=== PATIENT | male | born 2000 | race African-American/Black ===

== ENCOUNTER 2021-11-21 19:08 | Emergency (ER) | payer SELFPAY ==
[2021-11-21 19:11] VITALS: BP 161/93; PULSE 99; RESP 14; TEMP 36.8; O2SAT 100; BMI 28.4
[2021-11-21 19:16] VITALS: O2SAT 98
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
[2021-11-21 20:00] LABS: Absolute Lymphocyte Count 2.49 X10^3/uL (0.83-4.51); Absolute Neutrophil Count 6.2 X10^3/uL (2.0-7.7); Basophil# 0.02 X10^3/uL; Basophil% 0.2 % (0-1); Eosinophil# 0.41 X10^3/uL; Eosinophils% 4.2 % (0-5); Hematocrit 40.1 % (40-54); Hemoglobin 13.4 g/dL (13.0-16.5); Lymphocyte # 2.49 X10^3/ul (0.83-4.51); Lymphocyte % 25.3 % (19-41); Mean Corp Hgb Conc 33.4 g/dL (32-36); Mean Corpuscular Volume 89.7 fL (80-94); Mean Platelet Vol. 9.4 fl (6.2-12.0); Monocyte# 0.67 X10^3/uL; Monocyte% 6.8 % (0-10); NRBC Flagged by Analyzer 0 % (0-5); Neutrophil # 6.23 X10^3/uL (2.7-7.7); Neutrophil % 63.3 % (47-70); Platelet Count 230 K/mm3 (150-450); RBC Distribution Width CV 12.7 % (11.6-14.6); RBC Distribution Width SD 42.2 fl (35.1-43.9); Red Blood Count 4.47 M/mm3 (4.6-6.2); White Blood Count 9.8 K/mm3 (4.4-11.0)
[2021-11-21 20:20] LABS: Alcohol, Blood (Medical)-Serum < 3.0 mg/dL
[2021-11-21] MEDS: Ondansetron 4 MG/2 ML Vial IV (20:20)
[2021-11-21 20:21] LABS: ALB/GLOB Ratio 1.1 RATIO (0.9-2.4); AST(SGOT) 25 U/L (15-37); Alanine Aminotransfer ALT/SGPT 52 U/L (16-61); Albumin, Serum 3.8 g/dL (3.2-5.0); Alkaline Phosphatase 68 U/L (45-117); Anion Gap 5 (5-15); BUN 14 mg/dL (7-18); BUN/Creat Ratio 16.4 RATIO (10-20); Calcium,Total 8.9 mg/dL (8.5-10.1); Chloride 106 mmol/L (98-107); Creatinine, Serum 0.86 mg/dL (0.70-1.30); EST Glomerular Filtration Rate 120 mL/min (>60); Est Glom Filt Rate - Afr Amer 146 mL/min (>60); Globulin 3.4 g/dL (2.2-4.2); Glucose 98 mg/dL (74-106); Potassium 3.8 mmol/L (3.5-5.1); Protein, Total 7.2 g/dL (6.4-8.2); Sodium Level 139 mmol/L (136-145)
[2021-11-21 21:07] LABS: Bacteria 0 SEEN /hpf (None Seen); Mucous, Urine 0 SEEN /hpf (<or=2+); Red Blood Cells-Urine 0 SEEN /hpf (0-5); White Blood Cells 0 SEEN /hpf (0-5)
[2021-11-21 21:17] LABS: Color, Urine Yellow (Yellow); Glucose, Dipstick Normal (Normal); Ketone-Dipstick Negative (Negative); Leukocyte Esterase-Dipstick Negative /ul (Negative); Nitrite-Dipstick Negative (Negative); Occult Blood-Urine Negative /ul (Negative); Protein-Dipstick Negative (Negative); Urine Bilirubin Dipstick Negative (Negative); Urine Clarity Sl. Cloudy (Clear); Urine Urobilinogen Normal (Normal)
[2021-11-21 21:26] LABS: Amphetamine Urine VISTA NEGATIVE (<1000 ng/mL); Barbiturate Urine VISTA NEGATIVE (< 200 ng/mL); Benzodiazepine Urine VISTA NEGATIVE (< 200 ng/mL); Cocaine Urine VISTA NEGATIVE (< 300 ng/mL); Ecstacy Urine VISTA POSITIVE (< 500 ng/mL); Methadone Urine VISTA NEGATIVE (< 300 ng/mL); PCP Urine VISTA NEGATIVE (< 25 ng/mL); THC Urine VISTA POSITIVE (< 50 ng/mL); Vista UDS pH Range 7
[2021-11-21 21:32] LABS: Squamous Epithelial Cells - UA 0-5 SEEN /hpf (0-5)
[2021-11-21 22:19] VITALS: BP 149/91
== END 2021-11-21 22:19 | disposition home or self-care (01) ==
PROVIDERS: Emergency Provider Emergency Medicine; Visit Provider Emergency Medicine
DX: R56.9 Unspecified convulsions (principal); F17.210 Nicotine dependence, cigarettes, uncomplicated; V48.1XXA Car passenger injured in noncollision transport accident in nontraffic accident, initial encounter
CPT/HCPCS: 70450; 71260; 72125; 74177; 80053; 80307; 81001; 82077; 85025; 96361; 96374; 99285; J7040; Q9967; A4216; J2405

== ENCOUNTER 2022-07-04 22:24 | Inpatient (IN) | payer SELFPAY ==
[2022-07-04 22:24] VITALS: BP 143/91; PULSE 124; RESP 16; TEMP 36.6; O2SAT 98; BMI 28.8
[2022-07-04 23:43] LABS: ALB/GLOB Ratio 0.9 RATIO (0.9-2.4); AST(SGOT) 15 U/L (15-37); Alanine Aminotransfer ALT/SGPT 27 U/L (16-61); Albumin, Serum 3.9 g/dL (3.2-5.0); Alkaline Phosphatase 65 U/L (45-117); Anion Gap 5 (5-15); BUN 15 mg/dL (7-18); BUN/Creat Ratio 17.3 RATIO (10-20); Calcium,Total 9.1 mg/dL (8.5-10.1); Chloride 106 mmol/L (98-107); Creatinine, Serum 0.87 mg/dL (0.70-1.30); EST Glomerular Filtration Rate 118 mL/min (>60); Est Glom Filt Rate - Afr Amer 142 mL/min (>60); Estimated Creatinine Clearance 156.16 ml/min; Globulin 4.2 g/dL (2.2-4.2); Glucose 105 mg/dL (74-106); Potassium 3.7 mmol/L (3.5-5.1); Protein, Total 8.1 g/dL (6.4-8.2); Sodium Level 140 mmol/L (136-145)
[2022-07-04 23:51] LABS: Amphetamine Urine VISTA NEGATIVE (<1000 ng/mL); Barbiturate Urine VISTA NEGATIVE (< 200 ng/mL); Benzodiazepine Urine VISTA NEGATIVE (< 200 ng/mL); Cocaine Urine VISTA POSITIVE (< 300 ng/mL); Ecstacy Urine VISTA POSITIVE (< 500 ng/mL); Methadone Urine VISTA NEGATIVE (< 300 ng/mL); PCP Urine VISTA NEGATIVE (< 25 ng/mL); THC Urine VISTA POSITIVE (< 50 ng/mL); Vista UDS pH Range 6
[2022-07-04 23:52] LABS: Absolute Neutrophil Count 9.6 X10^3/uL (2.0-7.7); Basophil# 0.03 X10^3/uL; Basophil% 0.2 % (0-1); Eosinophil# 0.32 X10^3/uL; Eosinophils% 2.4 % (0-5); Hematocrit 41.9 % (40-54); Hemoglobin 13.9 g/dL (13.0-16.5); Lymphocyte % 18.6 % (19-41); Mean Corp Hgb Conc 33.2 g/dL (32-36); Mean Corpuscular Hgb 29.7 pg (27.0-32.0); Mean Corpuscular Volume 89.5 fL (80-94); Mean Platelet Vol. 9.4 fl (6.2-12.0); Monocyte# 0.84 X10^3/uL; Monocyte% 6.2 % (0-10); NRBC Flagged by Analyzer 0 % (0-5); Neutrophil # 9.59 X10^3/uL (2.7-7.7); Neutrophil % 71.3 % (47-70); Platelet Count 272 K/mm3 (150-450); RBC Distribution Width CV 12.6 % (11.6-14.6); RBC Distribution Width SD 41.8 fl (35.1-43.9); Red Blood Count 4.68 M/mm3 (4.6-6.2); White Blood Count 13.5 K/mm3 (4.4-11.0)
[2022-07-04 23:54] LABS: Alcohol, Blood (Medical)-Serum < 3.0 mg/dL
[2022-07-04] MEDS: LORazepam 2 MG/ML Syringe 1 MG IV (23:57)
--- NOTE | 2022-07-05 00:34 | EDS_ITS ---
HPI History of Present Illness Chief Complaint: Substance Abuse Detail of Chief Complaint: Opiate use abuse Onset/Context/Timing Onset: Month(s) Context: Gradual Onset Timing: Continuous Quality: Patient takes either 30 mg Percocet tablets or fentanyl. He states he snor Current Severity: Mild Maximum Severity: Moderate Worsened by: Patient reports diarrhea, sweats Relieved by: Taking more opiates Associated Symptoms Associated Symptoms: Mild withdrawal symptoms Narrative Narrative: Patient is a 22-year-old male with history of opiate use/abuse. He states he snorts what he believes to be 30 mg Percocet or fentanyl. He does not inject. He denies history of hepatitis C. Denies history of HIV. He is with his girlfriend. He is a smoker. He was informed that he will not be able to smoke while in the hospital. He understands. He denies headache, visual, ocular auditory symptoms. He does report mild dry mouth. He does report palpitations. He denies shortness of breath. He does endorse diarrhea and mild abdominal cramps. He denies rash or any skin lesions. Patient states he has never been in a detox program. Prior similar symptoms: No Recent Illness/Hospitalization: No PFSH PFSH Allergy/AdvReac Type Severity Reaction Status Date / Time buprenorphine [From Suboxone] AdvReac Nausea Verified 07/04/22 22:26 naloxone [From Suboxone] AdvReac Nausea Verified 07/04/22 22:26 Surgical History no surgical history no surgical history Social History (Updated 07/05/22 @ 00:[address] Ian Alarcon MD) household members: significant other Smoking Status: Current every day smoker tobacco type: cigarettes substance use type: opiates ROS ROS ED Constitutional Constitutional ED: Reports chills and sweats; Denies fever(s), subjective or weight loss Eyes Eyes: Denies blurry vision, change in vision or diplopia ENT ENT ED: Denies ear pain, rhinorrhea or sore throat Cardiovascular Cardiovascular: Reports palpitations and racing heartbeat; Denies chest pain Respiratory/Chest Respiratory/Chest: Denies cough, dyspnea or dyspnea on exertion Gastrointestinal Gastrointestinal: Reports abdominal pain and diarrhea; Denies constipation or nausea Genitourinary Genitourinary ED: Denies dysuria, hematuria or urinary frequency Musculoskeletal Musculoskeletal: Denies arthralgias, back pain, myalgias or neck pain Neurologic Neurologic: Denies headache(s), paresthesias or weakness Psychiatric Psychiatric: Reports anxiety Endocrine Endocrinology: Denies cold intolerance or heat intolerance Hematologic/Lymphatic Hematologic/Lymphatic: Reports systems reviewed and no addt'l complaints, except as documented EXAM Physical Exam Const Vital Signs: 07/04/22 22:24 Temperature 97.8 F Temperature Source Temporal Pulse Rate 124 H Respiratory Rate 16 Blood Pressure 143/91 H Blood Pressure Mean 108 Pulse Ox 98 Oxygen Delivery Method Room Air Positive well nourished and well developed Constitutional Narrative: Patient appears slightly uncomfortable. General Appearance ED: well developed and diaphoretic; Negative for pallor HEENT Reports dry mucous membranes HEENT Narrative: Head is atraumatic normocephalic. Ears normal. Nares patent. Posterior pharynx is normal. Mouth ED: Yes dry mucous membranes Mouth: dry mucous membranes Eyes PERRL and EOMs intact bilaterally General Eye ED: Negative for pale conjunctiva or scleral icterus Neck no lymphadenopathy, supple and no JVD Resp normal respiratory effort and clear to auscultation bilaterally Cardio regular rhythm, S1 normal heart sound, S2 normal heart sound and no murmurs Rate: tachycardic GI normal to inspection, nondistended, normoactive bowel sounds, non-tender and no masses; Negative for hepatosplenomegaly Inspection: Negative for abdominal distention Auscultation: hypoactive bowel sounds Palpation: soft Back/Spine no CVA tenderness Cervical Spine: Negative for cervical spine tenderness Thoracic Spine / Upper Back: Negative for thoracic spinal tenderness Lumbar Spine / Lower Back: Negative for lumbar spinal tenderness Extremity normal to inspection General Extremety ED: Negative for edema or tenderness General Extremity: Negative for edema Neuro oriented x3, CN's II-XII intact bilaterally and no sensory deficits noted Neuro Narrative: Patient is hyperreflexic. There is no clonus. Sensorium / Orientation: alert Psych mental status grossly normal Skin no rashes or lesions noted, no wounds and skin turgor normal General Skin Exam: Negative for jaundice or pallor MDM MDM MDM Narrative Medical decision making narrative: Addiction medicine protocol was initiated. Patient was treated with IV Ativan since he is diaphoretic and tachycardic. CBC was obtained to assess white count and rule out anemia. Competence metabolic panel was obtained to assess renal function and liver enzymes. Toxin level work pains as well. Lab Data Attestation: I reviewed the patient's lab results. Lab results narrative: CBC reveals a white count of 13.5 thousand with mild shift. There is no bandemia. H&H is normal. Comprehensive metabolic panel is normal. Alcohol level is less than 3.0. Tox is positive for MDMA, cocaine and cannabinoids. If patient is truly doing fentanyl would not expect talk screen to be positive. Labs: Laboratory Results - last 24 hr 07/04/22 07/04/22 07/04/22 23:15 23:15 23:15 WBC 13.5 H RBC 4.68 Hgb 13.9 Hct 41.9 MCV 89.5 MCH 29.7 MCHC 33.2 RDW Std Deviation 41.8 RDW Coeff of Ronni 12.6 Plt Count 272 MPV 9.4 Immature Gran % (Auto) 1.300 H Neut % (Auto) 71.3 H Lymph % (Auto) 18.6 L [place] % (Auto) 6.2 Eos % (Auto) 2.4 Baso % (Auto) 0.2 Absolute Neuts (auto) 9.6 H Absolute Lymphs (auto) 2.50 Nucleated RBC % 0 Sodium 140 Potassium 3.7 Chloride 106 Carbon Dioxide 29.0 Anion Gap 5 BUN 15 Creatinine 0.87 Estim Creat Clear Calc 156.16 Est GFR (MDRD) Af Amer 142 Est GFR (MDRD) Non-Af 118 BUN/Creatinine Ratio 17.3 Glucose 105 Calcium 9.1 Total Bilirubin 0.20 AST 15 ALT 27 Alkaline Phosphatase 65 Total Protein 8.1 Albumin 3.9 Globulin 4.2 Albumin/Globulin Ratio 0.9 Urine Opiates Screen Urine Methadone Screen Ur Barbiturates Screen Ur Phencyclidine Scrn Ur Amphetamines Screen MDMA (Ecstasy) Screen U Benzodiazepines Scrn Urine Cocaine Screen U Cannabinoids Screen Ur Drug Screen Comment Ethyl Alcohol < 3.0 07/04/22 23:15 WBC RBC Hgb Hct MCV MCH MCHC RDW Std Deviation RDW Coeff of Ronni Plt Count MPV Immature Gran % (Auto) Neut % (Auto) Lymph % (Auto) [place] % (Auto) Eos % (Auto) Baso % (Auto) Absolute Neuts (auto) Absolute Lymphs (auto) Nucleated RBC % Sodium Potassium Chloride Carbon Dioxide Anion Gap BUN Creatinine Estim Creat Clear Calc Est GFR (MDRD) Af Amer Est GFR (MDRD) Non-Af BUN/Creatinine Ratio Glucose Calcium Total Bilirubin AST ALT Alkaline Phosphatase Total Protein Albumin Globulin Albumin/Globulin Ratio Urine Opiates Screen NEGATIVE Urine Methadone Screen NEGATIVE Ur Barbiturates Screen NEGATIVE Ur Phencyclidine Scrn NEGATIVE Ur Amphetamines Screen NEGATIVE MDMA (Ecstasy) Screen POSITIVE H U Benzodiazepines Scrn NEGATIVE Urine Cocaine Screen POSITIVE H U Cannabinoids Screen POSITIVE H Ur Drug Screen Comment Ethyl Alcohol Rhythm Strip Rhythm Strip: Sinus Tach Rate: 122 Discharge Plan Triage Chief Complaint: Substance Abuse ED Provider: Ian Alarcon Dx/Rx/DC Orders Clinical Impression: Polysubstance (including opioids) dependence w/o physiol dependence, Sinus tachycardia, Opiate withdrawal Primary Care Provider: Care Physician,No Primary Referrals: Care Physician,No Primary [Primary Care Provider] - Disposition Disposition: Acute Care Hospital [facility]
--- NOTE | 2022-07-05 00:58 | PCM.HP.STD ---
HPI - General General Date of Admission: 07/05/22 Date of Service: 07/05/22 Chief Complaint: Desire for detoxification HPI Narrative ROD MERINO, is a 22 M with a significant history of seasonal allergies and multisubstance abuse who presents to the emergency department for help with opioid detoxification. Patient started using opioids at the age of 19. He has been snorting fentanyl and heroin. Previously he was using about 1 g a day but now he uses about 0.2 g to 0.3 g a day just to keep her from withdrawing. 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 He reports withdrawal symptoms of diarrhea, and leg pain. He has some nausea which has since resolved. Also, he smokes marijuana. In his tox screen was MDMA and cocaine. However he denies use of both cocaine and MDMA and thinks these might have been mixed with the fentanyl and heroin that he willfully use. PFSH Allergy/AdvReac Type Severity Reaction Status Date / Time buprenorphine [From Suboxone] AdvReac Nausea Verified 07/04/22 22:26 naloxone [From Suboxone] AdvReac Nausea Verified 07/04/22 22:26 Family History Other Alzheimer's dementia Diabetes Heart disease Surgical History no surgical history no surgical history Social History household members: significant other Smoking Status: Current every day smoker tobacco type: cigarettes substance use type: opiates ROS ROS Narrative Pertinent positives and pertinent negatives as noted in HPI. All other systems were reviewed and are negative Vital Signs Vital Signs Vital Signs: 07/04/22 22:24 Temperature 97.8 F Temperature Source Temporal Pulse Rate 124 H Respiratory Rate 16 Blood Pressure 143/91 H Blood Pressure Mean 108 Pulse Ox 98 Oxygen Delivery Method Room Air Weight Weight: 102.058 kg Body Mass Index (BMI) 28.8 Physical Exam Narrative Physical exam: General: Well-nourished, well-developed. Head: Normocephalic, atraumatic, no tenderness Eyes: Vision is grossly intact. EOMI ENT, no trauma, moist mucous membranes, no rhinorrhea Neck: Nontender, No thyromegaly. CVS: Regular rate and rhythm. S1-S2 present. No murmur, gallop or rub. Respiratory : clear to auscultation bilaterally, chest wall nontender, no wheezing Abdomen: Soft, nontender, nondistended, normal bowel sounds, no masses : Deferred Back: Nontender, no CVA tenderness, no midline spinal tenderness, deformities, step-offs Extremities: Nontender full range of motion, no trauma Skin: Normal color, no trauma, abrasions Neuro: Alert, oriented, cranial nerves II through XII grossly intact. Psychiatry: Normal mood. Normal affect. Not depressed. Not anxious. Results Lab / Micro Data Result Diagrams: 07/04/22 23:15 07/04/22 23:15 Labs: Laboratory Results - last 24 hr 07/04/22 23:15: WBC 13.5 H, RBC 4.68, Hgb 13.9, Hct 41.9, MCV 89.5, MCH 29.7, MCHC 33.2, RDW Std Deviation 41.8, RDW Coeff of Ronni 12.6, Plt Count 272, MPV 9.4, Immature Gran % (Auto) 1.300 H, Neut % (Auto) 71.3 H, Lymph % (Auto) 18.6 L, Eddy % (Auto) 6.2, Eos % (Auto) 2.4, Baso % (Auto) 0.2, Absolute Neuts (auto) 9.6 H, Absolute Lymphs (auto) 2.50, Nucleated RBC % 0 07/04/22 23:15: Sodium 140, Potassium 3.7, Chloride 106, Carbon Dioxide 29.0, Anion Gap 5, BUN 15, Creatinine 0.87, Estim Creat Clear Calc 156.16, Est GFR (MDRD) Af Amer 142, Est GFR (MDRD) Non-Af 118, BUN/Creatinine Ratio 17.3, Glucose 105, Calcium 9.1, Total Bilirubin 0.20, AST 15, ALT 27, Alkaline Phosphatase 65, Total Protein 8.1, Albumin 3.9, Globulin 4.2, Albumin/Globulin Ratio 0.9 07/04/22 23:15: Ethyl Alcohol < 3.0 07/04/22 23:15: Urine Opiates Screen NEGATIVE, Urine Methadone Screen NEGATIVE, Ur Barbiturates Screen NEGATIVE, Ur Phencyclidine Scrn NEGATIVE, Ur Amphetamines Screen NEGATIVE, MDMA (Ecstasy) Screen POSITIVE H, U Benzodiazepines Scrn NEGATIVE, Urine Cocaine Screen POSITIVE H, U Cannabinoids Screen POSITIVE H, Ur Drug Screen Comment Rhythm Strip Rhythm Strip: Sinus Tach Rate: 122 Assessment & Plan Assessment/Plan (1) Polysubstance (including opioids) dependence w/o physiol dependence: (2) Tobacco abuse: PLAN: Plan Opioid dependence and withdrawal Toxicology screen showed MDMA, cocaine and cannabinoids. Patient be started on Subutex and other adjunctive medications: Gabapentin as needed; dicyclomine as needed; Vistaril as needed; methocarbamol as needed; clonidine as needed; Imodium as needed; trazodone as needed and Zofran as needed. Reports history of nausea to Suboxone which he projects to Subutex but willing to try Subutex. Explained to patient that antiemetics will be ordered prn. Monitor COWS and CINA score Leukocytosis White count of 13.5% with bandemia of 1.3%. Likely reactive. Tobacco abuse Reportedly smokes cigarettes sticks per day. Counseled Marijuana abuse Counselled DVT prophylaxis Low risk Encourage to ambulate Charges/Coding Visit Charges Inpatient E&M: 93160 Init Hosp L2
[2022-07-05 01:22] VITALS: BP 140/86; PULSE 105; RESP 18; TEMP 36.7; O2SAT 100
[2022-07-05 01:45] VITALS: BMI 27.3
[2022-07-05 01:57] VITALS: BP 139/77; PULSE 79; RESP 18; TEMP 36.8; O2SAT 99
[2022-07-05] MEDS: Methocarbamol 750 MG Tablet 1500 MG PO ×2 (02:28→21:45)
[2022-07-05] MEDS: Loperamide 2 MG Capsule PO ×3 (03:34→21:45)
[2022-07-05] MEDS: Ondansetron 8 MG Tablet PO (03:34)
[2022-07-05] MEDS: Gabapentin 300 MG Capsule PO (03:34)
[2022-07-05] MEDS: Buprenorphine HCl 2 MG TAB.SUBL SL ×3 (03:35→18:51)
[2022-07-05 05:39] VITALS: BP 143/88; PULSE 74; RESP 16; TEMP 36.6; O2SAT 100
--- NOTE | 2022-07-05 07:58 | PN.HOSP_ITS ---
Reason for Visit Reason for Visit: Diagnoses Other psychoactive substance dependence, uncomplicated (07/05/22) Tobacco use (07/05/22) Subjective Subjective Shay Crowe is a 22-year-old male who presented to emergency department on 07/05/2022 requesting detoxification from opiates. Patient reports on admission he started using opiates at the age of 19 and has been snorting fentanyl and heroin. He currently is using about a gram a day at baseline but is currently been using approximately 0.2 to 0.3 g a day to keep from withdrawing. His last use was early in the morning on 07/03/2022. On presentation he was complaining of myalgias and specifically leg pain, diarrhea, nausea. Patient also admits to using marijuana. His talk screen was also positive for MDMA and cocaine however he adamantly denies utilizing either these and suspects that his fentanyl or heroin had been cut with this. He was admitted to the medical floor and placed on a Subutex taper to be initiated per COWS protocol. Supplemental medications for symptomatic relief were added and 180 was consulted. Patient was sleeping at the time of my evaluation. Appears comfortable. Objective Data Objective Data Vital Signs: Vital Signs Temp Pulse Resp BP Pulse Ox O2 Del Method 97.8 F 74 16 143/88 H 100 Room Air 07/05/22 05:39 07/05/22 05:39 07/05/22 05:39 07/05/22 05:39 07/05/22 05:39 07/05/22 05:39 Oxygen Delivery Method Room Air Weight: 96.785 kg Body Mass Index (BMI) 27.3 Lab / Micro Data Result Diagrams: 07/04/22 23:15 07/04/22 23:15 Labs: Laboratory Results - last 24 hr 07/04/22 23:15: WBC 13.5 H, RBC 4.68, Hgb 13.9, Hct 41.9, MCV 89.5, MCH 29.7, MCHC 33.2, RDW Std Deviation 41.8, RDW Coeff of Ronni 12.6, Plt Count 272, MPV 9.4, Immature Gran % (Auto) 1.300 H, Neut % (Auto) 71.3 H, Lymph % (Auto) 18.6 L , [place] % (Auto) 6.2, Eos % (Auto) 2.4, Baso % (Auto) 0.2, Absolute Neuts (auto) 9.6 H, Absolute Lymphs (auto) 2.50, Nucleated RBC % 0 07/04/22 23:15: Sodium 140, Potassium 3.7, Chloride 106, Carbon Dioxide 29.0, Anion Gap 5, BUN 15, Creatinine 0.87, Estim Creat Clear Calc 156.16, Est GFR (MDRD) Af Amer 142, Est GFR (MDRD) Non-Af 118, BUN/Creatinine Ratio 17.3, Glucose 105, Calcium 9.1, Total Bilirubin 0.20, AST 15, ALT 27, Alkaline Phosphatase 65, Total Protein 8.1, Albumin 3.9, Globulin 4.2, Albumin/Globulin Ratio 0.9 07/04/22 23:15: Ethyl Alcohol < 3.0 07/04/22 23:15: Urine Opiates Screen NEGATIVE, Urine Methadone Screen NEGATIVE, Ur Barbiturates Screen NEGATIVE, Ur Phencyclidine Scrn NEGATIVE, Ur Amphetamines Screen NEGATIVE, MDMA (Ecstasy) Screen POSITIVE H, U Benzodiazepines Scrn NEGATIVE, Urine Cocaine Screen POSITIVE H, U Cannabinoids Screen POSITIVE H, Ur Drug Screen Comment Rhythm Strip Rhythm Strip: Sinus Tach Rate: 122 Physical Exam Const no apparent distress and average body habitus Constitutional Narrative: Young -Dominican male lying in bed sleeping comfortably HEENT head/scalp atraumatic Head and Scalp: normocephalic Resp normal respiratory effort, no retractions, no use of accessory muscles and clear to auscultation bilaterally Auscultation: Negative for crackles, rhonchi or wheezes Cardio regular rate, regular rhythm, S1 normal heart sound, S2 normal heart sound, no murmurs, no rub, no gallops and no clicks GI normal to inspection, nondistended, normoactive bowel sounds, soft to palpation and non-tender Neuro Neuro Narrative: Patient sleeping Assessment & Plan Assessment/Plan (1) Opiate addiction: (2) Opiate withdrawal: (3) Sinus tachycardia: (4) Tobacco abuse: PLAN: Plan Opiate abuse -At baseline patient uses 1 g daily however had been tapering himself utilizing 0.2 to 0.3 g daily -Last use was early a.m. 07/03/2022--> per current orders last dose will be in 07/08/2022 at 3:29 AM -Subutex taper per COWS protocol -Supportive medications for symptom management -180 consultation for plan of care following discharge Sinus tachycardia -Likely related to withdrawal -Noted on presentation -Resolved Leukocytosis -Noted on admitting lab -Slight left shift -Repeat CBC in a.m. Tobacco abuse -Recommend cessation -Nicotine patch DVT prophylaxis -Low risk -Encourage frequent and early ambulation CODE STATUS Full code Charges/Coding Visit Charges Inpatient E&M: 60616 Subs Hosp L2
[2022-07-05 10:00] VITALS: BP 132/69; PULSE 79; RESP 18; TEMP 36.4; O2SAT 98
[2022-07-05] MEDS: Ensure Plus High Protein 120 ML LIQUID PO ×2 (11:09→21:48)
--- NOTE | 2022-07-05 12:11 | CASEMGMT ---
SW Note JED was advised by MS3 SW that patient has no insurance. JED met with patient briefly and provided him with Medicaid application. JED encouraged patient to complete the medicaid application when he is feeling better. No other issues or needs voiced. JED remains available if needs arise. Lynn COWAN
[2022-07-05] MEDS: Dicyclomine 10 MG Capsule 20 MG PO (13:04)
[2022-07-05] MEDS: hydrOXYzine PAM 25 MG Capsule 50 MG PO ×2 (13:04→21:46)
[2022-07-05 14:13] VITALS: BP 141/79; PULSE 85; RESP 16; TEMP 36.4; O2SAT 100
--- NOTE | 2022-07-05 16:27 | CHAPLAIN ---
Type of Pastoral Visit _x__ Initial Visit ___ Follow-up Visit ___ On-call Visit ___ General Patient Visit ___ Spiritual Assessment ___ Family Conference ___ Bereavement ___ Rapid Response ___ Code Blue ___ Other (describe below) Pastoral Care Referral From _x__ Patient ___ Family ___ Nurse ___ Physician ___ Member Of Congress ___ Educational Institution Curator ___ Other (describe below) Sacrament/Intervention _x__ Active listening ___ Anointing ___ Episcopalian ___ Bereavement ___ Communion _x__ Danette exploration ___ _x__ Life review _x__ Prayer ___ Reconciliation ___ Sacrament of Sick _x__ Supportive presence ___ Wedding ___ Other (describe below) Pastoral Comments patient welcomed this marketing information coordinator and immediately began to give life review in many tears; pt was very emotional and expressed deep regret, pain, grief, and the desire to be a father to his children; much listening, much affirmation for life and the decision he is making to become clean; pursuit of any spiritual belief to support the patient; pt is open to spiritual care and prayer; pt would welcome a follow up visit;
[2022-07-05 21:33] VITALS: BP 136/75; PULSE 69; RESP 16; TEMP 36.7; O2SAT 100
[2022-07-05] MEDS: traZODone 100 MG Tablet PO (21:45)
[2022-07-05] MEDS: cloNIDine HCl 0.1 MG Tablet PO (21:45)
[2022-07-06 03:21] VITALS: BP 133/81; PULSE 87; RESP 16; TEMP 36.4; O2SAT 100
[2022-07-06] MEDS: Loperamide 2 MG Capsule PO (03:39)
[2022-07-06] MEDS: Buprenorphine HCl 2 MG TAB.SUBL SL (03:39)
[2022-07-06] MEDS: Methocarbamol 750 MG Tablet 1500 MG PO (03:39)
[2022-07-06 05:50] LABS: Absolute Lymphocyte Count 2.53 X10^3/uL (0.83-4.51); Absolute Neutrophil Count 5.5 X10^3/uL (2.0-7.7); Basophil# 0.03 X10^3/uL; Basophil% 0.3 % (0-1); Eosinophil# 0.69 X10^3/uL; Eosinophils% 7.3 % (0-5); Hematocrit 40.3 % (40-54); Hemoglobin 13.4 g/dL (13.0-16.5); Lymphocyte # 2.53 X10^3/ul (0.83-4.51); Lymphocyte % 26.7 % (19-41); Mean Corp Hgb Conc 33.3 g/dL (32-36); Mean Corpuscular Volume 90.2 fL (80-94); Mean Platelet Vol. 9.4 fl (6.2-12.0); Monocyte# 0.71 X10^3/uL; Monocyte% 7.5 % (0-10); NRBC Flagged by Analyzer 0 % (0-5); Neutrophil # 5.47 X10^3/uL (2.7-7.7); Neutrophil % 57.8 % (47-70); Platelet Count 271 K/mm3 (150-450); RBC Distribution Width CV 12.8 % (11.6-14.6); RBC Distribution Width SD 42.5 fl (35.1-43.9); Red Blood Count 4.47 M/mm3 (4.6-6.2); White Blood Count 9.5 K/mm3 (4.4-11.0)
--- NOTE | 2022-07-06 06:16 | PN_ITS ---
Progress Note Notified that patient left AMA
--- NOTE | 2022-07-06 06:16 | PCM.PN.BLA ---
Progress Note Notified that patient left AMA
--- NOTE | 2022-07-06 07:01 | PCM.HOSP.N ---
Hospitalist Note Patient left AGAINST MEDICAL ADVICE after admission for opiate detox.
== END 2022-07-06 06:10 | disposition left against medical advice (07) | DRG 894 ==
LOC: ED 07-05 00:46 → MS3 07-05 01:00
PROVIDERS: Admitting Provider Hospitalist; Emergency Provider Emergency Medicine; Visit Provider Internal Medicine
DX: F11.23 Opioid dependence with withdrawal (principal); F12.10 Cannabis abuse, uncomplicated; F17.210 Nicotine dependence, cigarettes, uncomplicated; Z53.29 Procedure and treatment not carried out because of patient's decision for other reasons
CPT/HCPCS: 36415; 80053; 80307; 82077; 85025; 97802; 99284; A4216